=== PATIENT | male | born 1965 | race Caucasian/White ===

== ENCOUNTER 2017-12-03 22:59 | Emergency (ER) | payer BC ==
[2017-12-04] MEDS ORDERED: NS 0.9% 1000 ML* 1,000 ML IV ONE (01:08)
--- NOTE | 2017-12-04 01:23 | ED ---
Abdominal Pain/Male - HPI Summary HPI Summary: A 52 y/o male presents to the ED c/o sharp left-sided abdominal pain radiating to his left-side of back reaching 8/10 in severity. As per triage, "Pt stated that he is pretty sure that he has diverticulitis going on and states that he has had it before. Pt c/o abd. pain". According to the patient, he has been experiencing left-sided abdominal pain radiating to his left-side of back since last or Sunday. He stated that he has not been vomiting and his last BM was in the AM. He believes it is diverticulitis as he has had it before and the symptoms feels the same. Laying alleviates the symptoms, but any kind of movement aggravates the symptoms. Patient still has renal calculi present as they do not move. PMHx of several surgeries. - History of Current Complaint Chief Complaint: EDAbdPain Stated Complaint: RT FLANK/BACK PAIN Time Seen by Provider: 12/04/17 01:02 Hx Obtained From: Patient Onset/Duration: Sudden Onset, Lasting Days, Still Present Timing: Constant Severity Initially: Severe Severity Currently: Severe Pain Intensity: 8 Pain Scale Used: 0-10 Numeric Location: Other - Left sided Radiates: Yes Radiates to: Back - Left Character: Sharp Aggravating Factor(s): Movement Alleviating Factor(s): Position Associated Signs And Symptoms: Positive: Negative - Allergies/Home Medications Allergies/Adverse Reactions: Allergies Allergy/AdvReac Type Severity Reaction Status Date / Time iodine Allergy Hives Verified 12/03/17 23:07 Home Medications: Home Medications NK [No Home Medications Reported] 12/04/17 [History Confirmed 12/04/17] PMH/Surg Hx/FS Hx/Imm Hx Endocrine/Hematology History: Denies: Hx Anticoagulant Therapy, Hx Blood Disorders, Hx Blood Transfusions, Hx Bone Marrow Disease, Hx Diabetes, Hx Systemic Lupus Erythematosus, Hx Sickle Cell Disease, Hx Anemia, Hx Unexplained Bleeding, Other Endocrine/Hematological Disorders Respiratory History: Reports: Hx Seasonal Allergies - ocassionally, Hx Sleep Apnea - not diagnosed Denies: Hx Asthma, Hx Chronic Bronchitis, Hx Chronic Obstructive Pulmonary Disease (COPD), Hx Cystic Fibrosis, Hx Lung Cancer, Hx Pleural Effusion, Hx Pneumonia, Hx Pulmonary Edema, Hx Pulmonary Embolism, Other Respiratory Problems /Disorders GI History: Denies: Hx Gall Bladder Disease, Hx Gastroesophageal Reflux Disease, Hx Gastrointestinal Bleed, Hx Hiatal Hernia, Hx Irritable Bowel, Hx Jaundice, Hx Obstructive Bowel, Hx Ileostomy, Hx Pyloric Stenosis, Hx Ulcer, Other GI Disorders History: Reports: Hx Kidney Stones - has had for 30 yrs and have not moved per pt Denies: Hx Benign Prostatic Hyperplasia, Hx Chronic Renal Failure, Hx Dialysis Sensory History: Reports: Hx Contacts or Glasses Denies: Hx Vision Problem, Hx Deafness, Hx Hearing Aid, Hx Hearing Problem, Other Sensory Impairments Opthamlomology History: Reports: Hx Contacts or Glasses Denies: Hx Vision Problem, Other Sensory Impairments Psychiatric History: Denies: Hx Anxiety, Hx Attention Deficit Hyperactivity Disorder, Hx Eating Disorder, Hx Depression, Hx Panic Disorder, Hx Post Traumatic Stress Disorder, Hx Inpatient Treatment, Hx Community Mental Health Tx, Hx Schizophrenia, Hx Bipolar Disorder, Hx Suicide Attempt, Hx of Violent Episodes Against Others, Hx Substance Abuse, Other Psychiatric Issues/Disorders - Cancer History Cancer Type, Location and Year: testicular Hx Chemotherapy: No Hx Radiation Therapy: No Hx Palliative Cancer Treatment: No - Surgical History Surgery Procedure, Year, and Place: pyoplasty on the left. removed right testicle and lyphmectomy 1982 Hx Anesthesia Reactions: No Infectious Disease History: No Infectious Disease History: Denies: Hx Hepatitis, Hx Tuberculosis, Traveled Outside the [place] in Last 30 Days - Family History Known Family History: Negative: Blood Disorder - Social History Alcohol Use: Daily Alcohol Amount: couple beers/day Substance Use Type: Reports: None Smoking Status (MU): Heavy Every Day Tobacco Smoker Review of Systems Negative: Fever Positive: Abdominal Pain. Negative: Vomiting Positive: Other - POSITIVE: Back pain All Other Systems Reviewed And Are Negative: Yes Physical Exam - Summary Physical Exam Summary: VITAL SIGNS: Reviewed. GENERAL: Patient is a well-developed and nourished male who is lying comfortable in the stretcher. Patient is not in any acute respiratory distress. HEAD AND FACE: No signs of trauma. No ecchymosis, hematomas or skull depressions. No sinus tenderness. EYES: PERRLA, EOMI x 2, No injected conjunctiva, no nystagmus. EARS: Hearing grossly intact. Ear canals and tympanic membranes are within normal limits. MOUTH: Oropharynx within normal limits. NECK: Supple, trachea is midline, no adenopathy, no JVD, no carotid bruit, no c- spine tenderness, neck with full ROM. CHEST: Symmetric, no tenderness at palpation LUNGS: Clear to auscultation bilaterally. No wheezing or crackles. CVS: Regular rate and rhythm, S1 and S2 present, no murmurs or gallops appreciated. ABDOMEN: Soft, non-tender. Abdominal distension. No rebound no guarding, and no masses palpated. Bowel sounds are normal. EXTREMITIES: FROM in all major joints, no edema, no cyanosis or clubbing. NEURO: Alert and oriented x 3. No acute neurological deficits. Speech is normal and follows commands. SKIN: Dry and warm Triage Information Reviewed: Yes Vital Signs On Initial Exam: Initial Vitals Temp Pulse Resp BP Pulse Ox 97.8 F 50 20 183/107 100 12/03/17 23:03 12/03/17 23:03 12/03/17 23:03 12/03/17 23:03 12/03/17 23:03 Vital Signs Reviewed: Yes Diagnostics - Vital Signs Vital Signs Temp Pulse Resp BP Pulse Ox 12/03/17 23:03 97.8 F 50 20 183/107 100 - Laboratory Result Diagrams: 12/04/17 01:46 12/04/17 01:46 Lab Statement: Any lab studies that have been ordered have been reviewed, and results considered in the medical decision making process. - CT CT A/P CT Interpretation Completed By: Radiologist - Multiple nonobstructing left renal calculi There appears to be mild distention of some of the left renal calyces, but there is no distention of the left renal pelvis or ureter. Prostatic calcifications. Hepatomegaly. Fatty infiltration of the liver. Colonic diverticulosis. Multiple retroperitoneal surgical clips suggesting previous lymph node dissection. ED PHYSICIAN REVIEWED THIS RADIOLOGY REPORT. Abdominal Pain Fem Course/Dx - Course Course Of Treatment: A 52 y/o male presents to the ED c/o sharp left-sided abdominal pain radiating to his left-side of back reaching 8/[address] A/P Multiple nonobstructing left renal calculi There appears to be mild distention of some of the left renal calyces, but there is no distention of the left renal pelvis or ureter. Prostatic calcifications. Hepatomegaly. Fatty infiltration of the liver. Colonic diverticulosis. Multiple retroperitoneal surgical clips suggesting previous lymph node dissection. In the ED course, the patient received Percocet and IV fluids. Patient will be discharged with a diagnosis of abdominal pain. Patient is to follow up with PCP in 1-2 days. Patient is agreeable with this plan. - Diagnoses Provider Diagnoses: Abdominal pain Discharge - Sign-Out/Discharge Documenting (check all that apply): Patient Departure - DISCHARGE - Discharge Plan Condition: Stable Disposition: HOME Patient Education Materials: Abdominal Pain (ED) Referrals: Ayaz Westbrook MD [Primary Care Provider] - 2 Days Additional Instructions: FOLLOW UP WITH PRIMARY CARE IN 1-2 DAYS. RETURN TO ED FOR ANY NEW OR WORSENING SYMPTOMS. - Attestation Statements Document Initiated by Scribe: Yes Documenting Scribe: Mathew Isabel Provider For Whom Scribe is Documenting (Include Credential): Jodi Stone Attestation: Mathew Sloan, vasileed for Mei Barbosa on 12/04/17 at 0433.
[2017-12-04 01:54] LABS: ABS Basophils 0.1 10^3/ul (0-0.2); ABS Eosinophils 0.2 10^3/ul (0-0.6); ABS Lymphocytes 4.1 10^3/ul (1.0-4.8); ABS Monocytes 0.8 10^3/ul (0-0.8); ABS Neutrophils 4.9 10^3/ul (1.5-7.7); ABS Nucleated RBC 0 10^3/ul; Eosinophil % 2.2 % (0-6); Hematocrit 45 % (42-52); Hemoglobin 15.6 g/dl (14.0-18.0); Lymphocyte % 40.6 % (25-47); Mean Corpuscular HGB Conc 35 g/dl (31-36); Mean Corpuscular Hemoglobin 33 pg (27-31); Mean Corpuscular Volume 96 fL (80-94); Mean Platelet Volume 7.7 um3 (7.4-10.4); Nucleated Red Blood Cells % 0; Platelet Count 235 10^3/ul (150-450); Red Blood Count 4.73 10^6/ul (4.00-5.40); Red Cell Distribution Width 13 % (10.5-15)
--- NOTE | 2017-12-04 02:00 | RAD ---
EXAM: CT Abdomen and Pelvis Without Intravenous Contrast CLINICAL HISTORY: 52 years old, male; Signs and symptoms; Other: HX of diverticulitis, pt states it feels the same; Patient HX: HX of kidney stones not removed; Additional info: Abd pain TECHNIQUE: Axial computed tomography images of the abdomen and pelvis without intravenous contrast. All CT scans at this facility use at least one of these dose optimization techniques: automated exposure control; mA and/or kV adjustment per patient size (includes targeted exams where dose is matched to clinical indication); or iterative reconstruction. Coronal and sagittal reformatted images were created and reviewed. COMPARISON: A/P WO CT ABD/PEL W/0 08/01/2011 4:39 AM FINDINGS: Lung bases: Unremarkable. No mass. No consolidation. ABDOMEN: Liver: The liver is enlarged, also present on the previous study. There is fatty infiltration of the liver, also present on the previous study. Gallbladder and bile ducts: Unremarkable. No calcified stones. No ductal dilation. Pancreas: Unremarkable. No ductal dilation. Spleen: Unremarkable. No splenomegaly. Adrenals: Unremarkable. No mass. Kidneys and ureters: There are multiple nonobstructing left renal calculi, also present on the previous study. The largest calculus measures approximately 7 x 11 mm in size. Stomach and bowel: Colonic diverticula are demonstrated but there is no evidence for acute diverticulitis, a finding unchanged from the previous study. No obstruction. PELVIS: Appendix: No findings to suggest acute appendicitis. Bladder: Unremarkable. No stones. Reproductive: Prostatic calcifications are present, also present on the previous study. ABDOMEN and PELVIS: Intraperitoneal space: Unremarkable. No free air. No significant fluid collection. Retroperitoneal space: Multiple retroperitoneal surgical clips are present, also present on previous study. Bones/joints: There is an old compression fracture deformity of T10, also identified on the previous study. No dislocation. Soft tissues: Unremarkable. Vasculature: Unremarkable. No abdominal aortic aneurysm. Lymph nodes: Unremarkable. No enlarged lymph nodes. Tubes, lines and devices: There appears to be mild distention of some of the left renal calyces, but there is no dilatation of the left renal hilus or ureter. IMPRESSION: Multiple nonobstructing left renal calculi There appears to be mild distention of some of the left renal calyces, but there is no distention of the left renal pelvis or ureter. Prostatic calcifications. Hepatomegaly. Fatty infiltration of the liver. Colonic diverticulosis. Multiple retroperitoneal surgical clips suggesting previous lymph node dissection.
[2017-12-04 02:12] LABS: EGFR Non-African American 67.6 (>60)
[2017-12-04 04:20] LABS: Urine Appearance Clear; Urine Blood Negative (Negative); Urine Color Yellow; Urine Ketones Trace (Negative); Urine Protein Negative (Negative); Urine Specific Gravity 1.015 (1.010-1.030); Urine Urobilinogen Negative (Negative)
[2017-12-04] MEDS ORDERED: oxyCODONE/Acetamin 5/325 MG* TAB PO ONE (04:31)
[2017-12-04 04:40] VITALS: BP 0/0
== END 2017-12-04 04:38 | disposition home or self-care (01) ==
LOC: ED 22:59
DX: R10.9 Unspecified abdominal pain (principal); M54.9 Dorsalgia, unspecified; N20.0 Calculus of kidney; Z87.442 Personal history of urinary calculi; N42.0 Calculus of prostate; K76.0 Fatty (change of) liver, not elsewhere classified; K57.30 Diverticulosis of large intestine without perforation or abscess without bleeding; F17.200 Nicotine dependence, unspecified, uncomplicated
CPT/HCPCS: 36415; 74176; 80053; 81003; 82150; 83690; 83735; 85025; 86140; 96360; 99283

== ENCOUNTER 2018-04-15 05:43 | Day surgery (SDC) | payer BC ==
--- NOTE | 2018-03-20 08:12 | HP ---
CC: Dr. Ayaz Westbrook * HISTORY AND PHYSICAL: DATE OF PLANNED ADMISSION AND SURGERY: 04/15/18 HISTORY OF PRESENT ILLNESS: Mr. Downing is a 53-year-old white male, who is admitted with a left renal calculus for cystoscopy, left retrograde pyelography , and placement of left ureteral stent, followed by shock wave lithotripsy of the left renal calculus. Mr. Downing' history goes back to 1979, when he underwent a left pyeloplasty for left ureteropelvic junction obstruction. He has done well and had residual mild dilatation of the left collecting system. He has been followed because of history of renal calculus disease. He was worked up because of on and off episodes of left flank pain. His workup showed mild left caliectasis, a 1-cm calculus in the upper pole calyx of the left kidney, but no ureteral calculi were noted. The episodes of left flank discomfort were thought to be possibly related to scarring of the left pyeloplasty site. Because of the above history and findings, the patient is admitted for the above procedure. 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 He underwent a retroperitoneal lymph node dissection for the condition. He has done very well and has had no recurrent disease. Past history is, otherwise, negative. He has no voiding symptoms, no hematuria, and no history of urinary tract infections. Past medical history and system review is negative. He is in very good health. The patient had a diuretic nuclear renal scan in 2011. There was caliectasis, but no evidence of any obstruction. MEDICATIONS: He is on no chronic medications. ALLERGIES: He reports being allergic to LATEX and to IV CONTRAST. SOCIAL HISTORY: He is a nonsmoker. PHYSICAL EXAMINATION GENERAL: Pleasant and healthy-looking white male. VITAL SIGNS: Blood pressure 140/90. LUNGS: Clear. HEART: Regular and rhythmic. No murmurs. ABDOMEN: Soft. No masses, no tenderness, and no CVA tenderness. 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 The left testis feels normal. No inguinal hernias. RECTAL: Exam shows a slightly enlarged, but a benign-feeling prostate. IMPRESSION: 1. A 1-cm calculus in the upper pole calyx of the left kidney. 2. History of left ureteropelvic junction obstruction, status post left pyeloplasty in 1979 with residual left caliectasis and no evidence of obstruction by diuretic nuclear renal scan. 3. Recurrent episodes of left flank pain, possibly related to an element of scarring at the ureteropelvic junction. 4. Status post right radical orchiectomy for embryonal carcinoma without evidence of recurrent disease. PLAN: For cystoscopy and left retrograde pyelography to visualize the ureteropelvic junction with placement of a left ureteral stent, followed by shock wave lithotripsy of the left renal calculus. I discussed the above plans with the patient. All his questions were answered. [id number]/[facility] #: [id number] ROXIE
[~2018-04-15 05:43] MED LIST: Buffered Lidocaine 1% SYRIN* 1 ML/SYRINGE INTRADERM ONE
[2018-04-15] MEDS ORDERED: Dexamethasone IV* 4 MG/ML 1 ML (4 MG) IV SLOW PU ONE (06:00)
[2018-04-15] MEDS ORDERED: Lactated Ringers 1000 ML Bag* 1,000 ML IV SCH (06:00)
[2018-04-15] MEDS ORDERED: Famotidine IV* 10 MG/ML 2 ML (20 mg) IV ONE (06:00)
[2018-04-15] MEDS ORDERED: Dexamethasone IV* 4 MG/ML 1 ML (4 MG) ONE (06:16)
[2018-04-15] MEDS ORDERED: Famotidine IV* 10 MG/ML 2 ML (20 mg) ONE (06:17)
[2018-04-15] MEDS ORDERED: cefTRIAXone(*) 2 GM ADDV.VIAL IVPB ONE (06:17)
[2018-04-15] MEDS ORDERED: fentaNYL* 50 MCG/ML 2 ML VIAL (100 MCG VIAL) ONE (07:24)
[2018-04-15] MEDS ORDERED: Midazolam* 1 MG/ML 2 ML VIAL (2 MG) ONE (07:24)
[2018-04-15] MEDS ORDERED: Lidocaine 2% PF * 5 ML VIAL ONE (07:25)
[2018-04-15] MEDS ORDERED: Propofol* 10 MG/ML 20 ML BTL ONE (07:25)
[2018-04-15] MEDS ORDERED: Iohexol 180 (CONTRAST) 10 ML SDV IV ONE (07:38)
[2018-04-15] MEDS ORDERED: Phenylephrine INJ* 10 MG/ML 1 ML VIAL (10 MG) ONE (07:56)
[2018-04-15] MEDS ORDERED: Ondansetron INJ* 2 MG/ML VIAL ONE (08:03)
[2018-04-15] MEDS ORDERED: Furosemide IV* 10 MG/ML 2 ML VIAL (20 MG) ONE (08:07)
[2018-04-15] MEDS ORDERED: fentaNYL* 50 MCG/ML 2 ML VIAL (100 MCG VIAL) IV PRN (08:20)
[2018-04-15] MEDS ORDERED: DiMENhydriNATE IV* 50 MG/ML VIAL IV PUSH PRN (08:20)
[2018-04-15] MEDS ORDERED: Naloxone* 0.4 MG/ML 1 ML VIAL IV PRN (08:20)
[2018-04-15 09:41] VITALS: BP 135/86
--- NOTE | 2018-04-15 20:04 | OP ---
DATE OF OPERATION: 04/15/18 - [facility] DATE OF : 61 SURGEON: Dr. Ranjith Rivers. ANESTHESIOLOGIST: Dr. Reggie Singh. ANESTHESIA: General. PRE-OP DIAGNOSES: 1. Left hydronephrosis. 2. Left renal calculus. POST-OP DIAGNOSES: 1. Left hydronephrosis. 2. Left renal calculus. OPERATIVE PROCEDURE: 1. Cystoscopy. 2. Left retrograde pyelography. 3. Placement of left ureteral stent (6-Mongolian). 4. Shockwave lithotripsy of left renal calculus (1 cm, upper pole). INDICATIONS FOR PROCEDURE: Mr. Downing is a 53-year-old white male who had congenital left ureteropelvic junction obstruction and underwent left pyeloplasty in 1979. This left him with residual mild left hydronephrosis. The patient was evaluated because of the hydronephrosis and because of episodes of left flank discomfort and was noted to have nonobstructive residual mild left hydronephrosis without evidence of obstruction by diuretic nuclear renal scan. He has been followed because of a 1 cm calculus in an upper pole calyx of the left kidney. It seemed that the calculus could well be located in a calyceal diverticulum. It has been mildly symptomatic with episodes of mild left flank pain. Because of the above history and findings, the patient is brought in for the above procedures for both diagnostic and therapeutic purposes. PATHOLOGY AT CYSTOSCOPY: The penile and bulbar urethrae looked normal. The prostatic urethra measured 2.5 cm in length and there was no significant obstruction noted. Examination of the bladder showed normal mucosa. No suspicious bladder lesions were seen. No calculi or diverticula were noted. There was a single orthotopic orifice on each side. Upon left retrograde pyelography, there was no ureteral obstruction or abnormalities noted. The ureteropelvic junction was well demonstrated and there was no evidence of recurrent obstruction at that level. Mild left hydronephrosis was noted. The calculus was likely located in an upper pole calyceal diverticulum. DESCRIPTION OF PROCEDURE: After successful general anesthesia, the patient was placed in the lithotomy position and was prepped and draped for cystoscopy. Cystoscopy was performed. The findings in the urethra and in the bladder were noted. A flexible-tip guidewire was then introduced into the left orifice and positioned in the distal ureter. A size 5-Mongolian open-ended catheter was fed on top of the guidewire. Retrograde pyelography was then performed. The open- ended catheter was introduced all the way in the proximal ureter and retrograde was again performed, demonstrating the ureteropelvic junction clearly and showing no obstruction. The left collecting system was then drained. A 6-Mongolian stent was then placed with the proximal end coiling in the renal pelvis and the distal end coiling inside the bladder. A size 16-Mongolian Ibanez catheter was passed inside the bladder. The patient was placed in the supine position on the shockwave lithotripsy table. The left renal calculus was visualized on both of the PA and the oblique x-ray views, and the positions of the patient and of the generator were adjusted to have the stone in the focus of the shockwaves. A total of 2,000 shocks were then delivered at a rate of 60 shocks/mn. The proper positioning and fragmentation of the stone were monitored periodically. A 2- minute break was taken after the initial 300 shocks to decrease the risk of renal injury. At the completion of the treatment, the stone seemed to have fragmented, but was still located within the same area without any fragments trickling into the infundibulum strongly suggestive that the calculus is, in fact, in a calyceal diverticulum The patient tolerated the procedure well and left the operating room in good condition. The plan is to keep the stent in place for 7 to 10 days. It will be removed in the office under local anesthesia. [id number]/[facility] #: [id number] MTDSuresh
== END 2018-04-15 09:45 | disposition home or self-care (01) ==
LOC: OR 05:43
PROVIDERS: ATTEND Urology
DX: N13.2 Hydronephrosis with renal and ureteral calculous obstruction (principal); Z85.47 Personal history of malignant neoplasm of testis; Z72.0 Tobacco use
CPT/HCPCS: C1876; J0696; J1100; J1940; J2250; J2405; J2704; J3010

== ENCOUNTER 2022-04-25 05:32 | Inpatient (IN) ==
[2022-04-25] MEDS ORDERED: Tranexamic Acid 1 GM/100ML BAG 2,000 MG/200 ML BAG IV ONE (05:52)
[2022-04-25] MEDS ORDERED: ceFAZolin 2 GM in NS PREMIX 2 GM/100 ML BAG IVPB ONE (05:52)
[2022-04-25] MEDS ORDERED: Lactated Ringers 1000 ml BAG 1,000 ML IV SCH (06:00)
[2022-04-25] MEDS ORDERED: Buffered Lidocaine 1% SYRIN 1 ml INTRADERM ONE (06:00)
[2022-04-25] MEDS ORDERED: fentaNYL 100 mcg/2 ml 50 MCG/ML VIAL ONE (06:33)
[2022-04-25] MEDS ORDERED: Midazolam 2 mg/2 ml VIAL 1 mg/ml 2 ml VIAL (2 mg) ONE (06:33)
[2022-04-25] MEDS ORDERED: Bupivacaine 0.5% W/EPI SDV 10 ML VIAL INJ ONE (07:00)
[2022-04-25] MEDS ORDERED: Bupivacaine 0.25% SDV 30 ML ONE (07:00)
[2022-04-25] MEDS ORDERED: BUPIVACAINE **LIPOSOME/PF 13.3 MG/ML (266MG/ 20ML) VIAL (RESTRICTED) INFIL ONE (07:00)
[2022-04-25] MEDS ORDERED: Lidocaine 2% PF 5 ML VIAL ONE ×2 (07:26→09:17)
[2022-04-25] MEDS ORDERED: Dexamethasone IV 4 MG/ML VIAL 1 ml VIAL ONE (08:18)
[2022-04-25] MEDS ORDERED: Ondansetron 4 mg VIAL 2 MG/ML 2 ml VIAL ONE (08:18)
[2022-04-25] MEDS ORDERED: Prochlorperazine 5 mg/ml 2 ml VIAL (10 mg) IV PRN (08:27)
[2022-04-25] MEDS ORDERED: fentaNYL 100 mcg/2 ml 50 MCG/ML VIAL IV PRN (08:27)
[2022-04-25] MEDS ORDERED: Ondansetron 4 mg VIAL 2 MG/ML 2 ml VIAL IV PRN ×2 (08:27→10:19)
[2022-04-25] MEDS ORDERED: Naloxone 0.4 mg VIAL 0.4 mg/ml 1 ml VIAL IV PRN (08:27)
[2022-04-25] MEDS ORDERED: Propofol 10 MG/ML 20 ML BTL ONE ×2 (08:53→09:39)
[2022-04-25] MEDS ORDERED: Ondansetron ODT 4 mg TAB 4 MG TAB PO PRN (10:19)
[2022-04-25] MEDS ORDERED: Magnesium Hydroxide LIQ 30 ML UDC PO PRN (10:19)
[2022-04-25] MEDS ORDERED: Lactulose 30 ml UDC PO PRN (10:19)
[2022-04-25] MEDS: Lactated Ringers 1000 ml BAG 1,000 ML IV SCH ×2 (12:01→22:54)
[2022-04-25] MEDS: ceFAZolin 1 GM ADVAN 1 GM in NS 0.9% 50 ML 50 ML IVPB SCH (16:32)
[2022-04-25] MEDS: Magnesium Hydroxide LIQ 30 ML UDC PO SCH (20:15)
[2022-04-26] MEDS: ceFAZolin 1 GM ADVAN 1 GM in NS 0.9% 50 ML 50 ML IVPB SCH ×2 (00:43→08:36)
[2022-04-26 06:10] LABS: Hematocrit 40 % (42-52); Hemoglobin 13.3 g/dL (14.0-18.0); Mean Platelet Volume 7.6 fL (7.4-10.4); Platelet Count 249 10^3/uL (150-450)
[2022-04-26 06:30] LABS: Calcium 9.1 mg/dL (8.6-10.3); Creatinine, Serum 0.85 mg/dL (0.67-1.17); Potassium 3.8 mmol/L (3.5-5.0); eGFR CKD-EPI 100.1 (>60)
[2022-04-26] MEDS: Magnesium Hydroxide LIQ 30 ML UDC PO SCH (08:37)
[2022-04-26] MEDS ORDERED: Pneumococcal Vac 23-Polyvalent IM ONE (09:00)
[2022-04-26] MEDS ORDERED: Vitamin THERAPEUTIC TAB PO SCH (09:00)
[2022-04-26 11:23] VITALS: BP 155/89
[2022-04-26 13:40] LABS: Urine Appearance Clear; Urine Bilirubin Negative (Negative); Urine Blood 2+ (Negative); Urine Color Yellow; Urine Glucose Negative (Negative); Urine Ketones Negative (Negative); Urine Nitrite Negative (Negative); Urine Protein 1+(30 mg/dL) (Negative); Urine Specific Gravity 1.012 (1.002-1.030); Urine Urobilinogen Negative (Negative)
[2022-04-26 13:46] LABS: Urine Bacteria 1+ (Absent); Urine Red Blood Cell Trace(0-2/hpf) (Absent); Urine Squamous Epithelial Cell Present (Absent); Urine White Blood Cell Trace(0-5/hpf) (Absent)
== END 2022-04-26 13:30 | disposition home or self-care (01) | DRG 302 ==
LOC: OR 05:32 → SSU 05:32
PROVIDERS: ADMIT Orthopaedic Surgery Sports Medicine; ATTEND Orthopaedic Surgery Sports Medicine